=== PATIENT | male | born 1990 | race Caucasian/White ===

== ENCOUNTER 2016-09-02 16:34 | Emergency (ER) | payer OTHER ==
[~2016-09-02] VITALS: Ht 190.5 cm; Wt 78.5 kg
[2016-09-02 16:35] VITALS: BP 135/83
[2016-09-02] MEDS ORDERED: AUGMENTIN 875 MG TAB PO ONE (17:00)
[2016-09-02] MEDS ORDERED: IBUPROFEN 800 MG TAB PO ONE (17:00)
[2016-09-02] MEDS ORDERED: AUGM875T27 PO (17:04)
== END 2016-09-02 17:16 | disposition home or self-care (01) ==
LOC: M ED 17:15
DX: J06.9 Acute upper respiratory infection, unspecified (principal); R50.9 Fever, unspecified; R07.0 Pain in throat; F17.200 Nicotine dependence, unspecified, uncomplicated

== ENCOUNTER 2017-05-25 11:48 | Emergency (ER) | payer OTHER | END 2017-05-25 13:56 | disposition home or self-care (01) | LOC: M ED 11:48 | DX: S62.315A Displaced fracture of base of fourth metacarpal bone, left hand, initial encounter for closed fracture (principal); S62.317A Displaced fracture of base of fifth metacarpal bone, left hand, initial encounter for closed fracture; W00.0XXA Fall on same level due to ice and snow, initial encounter; Y92.018 Other place in single-family (private) house as the place of occurrence of the external cause; F17.210 Nicotine dependence, cigarettes, uncomplicated | CPT/HCPCS: 73130 ==

== ENCOUNTER 2018-02-13 15:23 | Emergency (ER) | payer OTHER | END 2018-02-13 15:40 | disposition home or self-care (01) | LOC: M ED 15:23 | DX: S60.221A Contusion of right hand, initial encounter (principal); W22.8XXA Striking against or struck by other objects, initial encounter; Y92.89 Other specified places as the place of occurrence of the external cause; Y99.0 Civilian activity done for income or pay; Z87.81 Personal history of (healed) traumatic fracture | CPT/HCPCS: 73110 ==

== ENCOUNTER 2018-04-06 08:59 | Emergency (ER) | payer OTHER ==
[2018-04-06] MEDS: DERMABOND TOPICAL SKIN ADHESIVE TOP (09:29)
[2018-04-06] MEDS: ADACEL/BOOSTRIX VACCINE (DIPHTH/PERTUSS/ACELL/TETANUS)0.5ML SYR (90715) IM (09:45)
== END 2018-04-06 09:54 | disposition home or self-care (01) ==
LOC: M ED 08:59
DX: S61.411A Laceration without foreign body of right hand, initial encounter (principal); S61.011A Laceration without foreign body of right thumb without damage to nail, initial encounter; W25.XXXA Contact with sharp glass, initial encounter; Y92.099 Unspecified place in other non-institutional residence as the place of occurrence of the external cause; Y93.9 Activity, unspecified; Y99.9 Unspecified external cause status; Z72.0 Tobacco use
CPT/HCPCS: 90715

== ENCOUNTER 2018-06-11 20:50 | Emergency (ER) | payer OTHER ==
[~2018-06-11] VITALS: Ht 190.5 cm; Wt 81.8 kg
[~2018-06-11 20:50] MED LIST: AUGM875T28 PO; NORCOTAB PO
[2018-06-11] MEDS ORDERED: LIDOCAINE W/EPINEPHRINE 1% 20ML VIAL SC ONE (22:00)
[2018-06-11] MEDS ORDERED: PENICILLIN V POTASSIUM 500 MG TAB PO ONE (22:00)
[2018-06-11] MEDS ORDERED: CETACAINE SPRAY 5GM TOP ONE (22:00)
[2018-06-11] MEDS ORDERED: BUPIVACAINE HCL 0.5% 10 ML VIAL SC ONE (22:00)
[2018-06-11 22:30] VITALS: BP 127/65
[2018-06-11] MEDS ORDERED: PENI500T PO (22:30)
[2018-06-11] MEDS ORDERED: IBUP-1022 PO (22:30)
== END 2018-06-11 22:33 | disposition home or self-care (01) ==
LOC: M ED 20:50
DX: K04.7 Periapical abscess without sinus (principal); F17.200 Nicotine dependence, unspecified, uncomplicated

== ENCOUNTER 2020-10-23 11:37 | Emergency (ER) | payer OTHER ==
[~2020-10-23] VITALS: Ht 190.5 cm; Wt 84.3 kg
[~2020-10-23 11:37] MED LIST changes: +HYDR-3715 PO; +IBUP-1022 PO; -NORCOTAB PO; +PENI500T PO
[2020-10-23 11:38] VITALS: BP 137/78
--- NOTE | 2020-10-23 12:18 | REP ---
INDICATION: trauma. COMPARISON: None. TECHNIQUE: 2 x 2 mm increments using standard helical technique and reconstructed in both sagittal and coronal planes. Both bone and soft tissue windows were utilized. FINDINGS: Vertebral body height and alignment is within normal limits. The disc spaces are symmetric and well maintained throughout. The facet joints are well aligned bilaterally. There is no abnormal paraspinal soft tissue swelling. IMPRESSION: CT findings are within normal limits. <Electronically signed by Ja Johnosn > 10/23/20 [id number]
--- NOTE | 2020-10-23 12:21 | REP ---
INDICATION: trauma. COMPARISON: None. TECHNIQUE: 4.5 mm contiguous transaxial sections were obtained from the skull base to the cerebral convexities with thin cuts through the posterior fossa without the administration of intravenous contrast. FINDINGS: The ventricles and sulci are consistent with the patient's age. There are no extra-axial fluid collections. There is no mass effect. The deep cerebral white matter is consistent with the patient's age. The orbital and petrous structures, cerebellopontine angles, and posterior fossa are unremarkable. The sella turcica, cavernous, and paracavernous structures are essentially unremarkable. There is complete opacification of the imaged portion of the right maxillary sinus. A small amount of soft tissue density is seen in the frontal sinuses and frontal ethmoid recesses bilaterally and scattered within the ethmoid bulla. The mastoid air cells are clear. IMPRESSION: Essentially unremarkable CT examination of the brain. There is paranasal sinus disease which is likely mucosal thickening as described above, however, acute right maxillary sinusitis cannot be ruled out. Follow-up is suggested. <Electronically signed by Ja Johnson > 10/23/20 [id number]
[2020-10-23] MEDS ORDERED: KETO10TAB PO (14:25)
[2020-10-23] MEDS ORDERED: METH-1164 PO (14:26)
--- NOTE | 2020-10-24 12:15 | ED PDOC ---
Post-Departure Follow-Up radiology report faxed to [facility] clinic Stacie Simental MD Oct 24, 2020 12:15
== END 2020-10-23 15:16 | disposition home or self-care (01) ==
LOC: M ED 11:37
DX: M54.2 Cervicalgia (principal); S06.0X0A Concussion without loss of consciousness, initial encounter; W22.8XXA Striking against or struck by other objects, initial encounter; Y92.89 Other specified places as the place of occurrence of the external cause; Y99.0 Civilian activity done for income or pay; F17.210 Nicotine dependence, cigarettes, uncomplicated

== ENCOUNTER 2021-05-15 22:12 | Emergency (ER) | payer OTHER, SELFPAY ==
[~2021-05-15] VITALS: Ht 190.5 cm; Wt 84.3 kg
[~2021-05-15 22:12] MED LIST changes: +KETO10TAB PO; +METH-1164 PO
[2021-05-15] MEDS ORDERED: PANTOPRAZOLE 40MG VIAL IV ONE (23:00)
[2021-05-15 23:42] LABS: BASO % 0.2 % (0.0-1.0); EOS % 0.6 % (0.0-3.0); HEMATOCRIT 42.5 % (42.0-52.0); HEMOGLOBIN 14.9 g/dl (13.5-17.5); LYMPH # 1.1 10^3/uL (1.5-5.0); MEAN CORPUSCULAR HEMOGLOBIN 33.4 pg (27.0-33.0); MEAN CORPUSCULAR HGB CONC 35.1 g/dl (32.0-36.5); MEAN CORPUSCULAR VOLUME 95.3 fl (80.0-96.0); MONO # 0.6 10^3/uL (0.0-0.8); MONO % 12.1 % (2.0-8.0); NEUTROPHILS # 3.2 10^3/uL (1.5-8.5); NEUTROPHILS % 63.7 % (36.0-66.0); PLATELET COUNT, AUTOMATED 184 10^3/uL (150-450); RED BLOOD COUNT 4.46 10^6/uL (4.30-6.10)
[2021-05-15 23:49] LABS: ALBUMIN 3.8 GM/DL (3.2-5.2); BILIRUBIN,DIRECT 0.2 MG/DL (0.0-0.2); BILIRUBIN,TOTAL 0.7 MG/DL (0.2-1.0); TOTAL PROTEIN 6.8 GM/DL (6.4-8.2)
[2021-05-16] MEDS ORDERED: PROT1TAB2 PO (00:18)
[2021-05-16 00:30] VITALS: BP 110/55
== END 2021-05-16 00:51 | disposition home or self-care (01) ==
LOC: M ED 22:12
DX: R10.13 Epigastric pain (principal); F17.210 Nicotine dependence, cigarettes, uncomplicated
CPT/HCPCS: 80047; 80076; 83690; 85025; 96374; 99284; C9113

== ENCOUNTER 2021-08-22 02:17 | Emergency (ER) | payer SELFPAY ==
[~2021-08-22] VITALS: Ht 190.5 cm; Wt 79.0 kg
[~2021-08-22 02:17] MED LIST changes: +PROT1TAB2 PO
[2021-08-22] MEDS ORDERED: NS 1,000 ML IV ONE (05:30)
[2021-08-22] MEDS ORDERED: ONDANSETRON 4MG/2ML VIAL IV ONE (05:30)
[2021-08-22 06:46] LABS: BASO % 0.2 % (0.0-1.0); HEMATOCRIT 43.3 % (42.0-52.0); LYMPH # 0.4 10^3/uL (1.5-5.0); MEAN CORPUSCULAR HEMOGLOBIN 33.3 pg (27.0-33.0); MEAN CORPUSCULAR HGB CONC 34.6 g/dl (32.0-36.5); MEAN CORPUSCULAR VOLUME 96.2 fl (80.0-96.0); MONO # 0.9 10^3/uL (0.0-0.8); MONO % 6.9 % (2.0-8.0); NEUTROPHILS # 11.6 10^3/uL (1.5-8.5); NEUTROPHILS % 89.4 % (36.0-66.0); PLATELET COUNT, AUTOMATED 193 10^3/uL (150-450)
[2021-08-22] MEDS ORDERED: KETOROLAC 30 MG/ML 1ML VIAL IV ONE (07:15)
[2021-08-22 07:19] LABS: ALBUMIN 3.8 GM/DL (3.2-5.2); ALT/SGPT 17 U/L (12-78); BILIRUBIN,TOTAL 2.2 MG/DL (0.2-1.0); BLOOD UREA NITROGEN 12 MG/DL (7-18); CALCIUM LEVEL 8.8 MG/DL (8.5-10.1); CARBON DIOXIDE LEVEL 25 MEQ/L (21-32); CHLORIDE LEVEL 104 MEQ/L (98-107); CREATININE FOR GFR 0.74 MG/DL (0.70-1.30); GLOMERULAR FILTRATION RATE > 60.0 (>60); GLUCOSE, FASTING 119 MG/DL (70-100); SODIUM LEVEL 134 MEQ/L (136-145); TOTAL PROTEIN 7.1 GM/DL (6.4-8.2)
[2021-08-22 08:34] VITALS: BP 116/75
[2021-08-22] MEDS ORDERED: DICY10CA13 PO (08:51)
[2021-08-22] MEDS ORDERED: ONDA4TAB6 PO (08:51)
== END 2021-08-22 09:30 | disposition home or self-care (01) ==
LOC: M ED 02:17
DX: R19.7 Diarrhea, unspecified (principal); R10.9 Unspecified abdominal pain; R50.9 Fever, unspecified
CPT/HCPCS: 71046; 80053; 83735; 85025; 87040; 87486; 87581; 87633; 87798; 96361; 96374; 96375; 99283; J1885; J2405

== ENCOUNTER → 2024-06-12 | Outpatient (REF) | payer OTHER ==
[~2024-06-12] MED LIST changes: +DICY-61 PO; +ONDA-282 PO
[2024-06-12 14:43] LABS: ALBUMIN 4.2 G/DL (3.2-5.2); ALKALINE PHOSPHATASE 42 U/L (40-129); ALT/SGPT 14 U/L (7.0-40); AST/SGOT 17 U/L (<34); BILIRUBIN,TOTAL 1.7 MG/DL (0.3-1.2); BLOOD UREA NITROGEN 13 MG/DL (9-23); CALCIUM LEVEL 9.4 MG/DL (8.5-10.1); CARBON DIOXIDE LEVEL 33 MMOL/L (20-31); CHLORIDE LEVEL 104 MMOL/L (98-107); CHOLESTEROL LEVEL 193 MG/DL (<200); CHOLESTEROL RISK RATIO 3.82 (<5); CREATININE FOR GFR 0.77 MG/DL (0.70-1.30); GLOMERULAR FILTRATION RATE > 60.0 (>60); GLUCOSE, FASTING 58 MG/DL (60-100); HDL CHOLESTEROL 50.5 MG/DL (>40); LDL CHOLESTEROL 127.5 MG/DL (<100); NON-HDL-C 142.5 MG/DL; POTASSIUM SERUM 4.4 MMOL/L (3.5-5.1); SODIUM LEVEL 141 MMOL/L (136-145); TOTAL PROTEIN 7.1 G/DL (5.7-8.2); TRIGLYCERIDES LEVEL 75 MG/DL (<150)
[2024-06-12 15:16] LABS: HIV 1&2 SCREEN NEGATIVE (NEGATIVE)
== END ==
LOC: M LAB REF 13:03
PROVIDERS: ATTEND Physician Assistant
DX: E55.9 Vitamin D deficiency, unspecified (principal); Z13.220 Encounter for screening for lipoid disorders; Z11.9 Encounter for screening for infectious and parasitic diseases, unspecified

== ENCOUNTER → 2024-08-09 | Outpatient (REF) | payer OTHER ==
[2024-08-09 11:00] LABS: APPEARANCE, URINE HAZY (CLEAR); BACTERIA, URINE AUTO NEGATIVE (NEGATIVE); BILIRUBIN, URINE AUTO NEGATIVE (NEGATIVE); BLOOD, URINE BLOOD NEGATIVE (NEGATIVE); COLOR, URINE YELLOW (YELLOW); GLUCOSE, URINE (UA) AUTO NEGATIVE (NEGATIVE); KETONE, URINE AUTO NEGATIVE (NEGATIVE); LEUKOCYTE ESTERASE, URINE AUTO NEGATIVE (NEGATIVE); MUCUS, URINE SMALL (NEGATIVE); NITRITE, URINE AUTO NEGATIVE (NEGATIVE); PROTEIN, URINE AUTO NEGATIVE (NEGATIVE); RBC, URINE AUTO 1 /HPF (0-3); SPECIFIC GRAVITY URINE AUTO 1.024 (1.002-1.035); SQUAMOUS EPITHELIAL CELL UR AU 0 /HPF (0-6); UROBILINOGEN, URINE AUTO 0.2 mg/dL (0.0-2.0); WBC, URINE AUTO 2 /HPF (0-3)
== END ==
LOC: M LAB REF 10:03
PROVIDERS: ATTEND Physician Assistant
DX: F52.21 Male erectile disorder (principal)

== ENCOUNTER → 2024-12-18 | Outpatient (REF) | payer OTHER ==
[~2024-12-18] MED LIST changes: -IBUP-1022 PO; +IBUP600T42 PO
== END ==
LOC: M SMT 13:20
PROVIDERS: ATTEND Urology
DX: Z30.2 Encounter for sterilization (principal)